=== PATIENT | male | born 1945 ===

== ENCOUNTER 2020-04-28 06:00 | Outpatient (RCR) | payer MEDICARE, OTHER, SELFPAY | END 2020-05-21 23:59 | disposition home or self-care (01) | LOC: GPT 06:00 | PROVIDERS: Referring Provider Orthopaedic Surgery; Visit Provider Orthopaedic Surgery | DX: M75.42 Impingement syndrome of left shoulder (principal); M75.52 Bursitis of left shoulder | CPT/HCPCS: 97110; 97140; 97162; 97530 ==